=== PATIENT | male | born 1985 | race Caucasian/White ===

== ENCOUNTER 2017-08-01 10:45 | Emergency (ER) | END 2017-08-01 18:30 | disposition home or self-care (01) ==

== ENCOUNTER 2018-09-11 09:14 | Emergency (ER) | payer BC, MEDICAID ==
[~2018-09-11] VITALS: Ht 162.6 cm; Wt 103.0 kg
[~2018-09-11 09:14] MED LIST: HYDR-4011 PO; IBUP-1542 PO
[2018-09-11 09:39] VITALS: BP 134/71; PULSE 69; RESP 20; Ht 162.6 cm; Wt 103.0 kg
[2018-09-11] MEDS ORDERED: MED4DP PO (10:46)
[2018-09-11] MEDS ORDERED: NAPR-985 PO (10:46)
--- NOTE | 2018-09-11 10:51 | ERD ---
ER Documentation Chief Complaint Chief Complaint Complains of bilateral hand pain x 3 days HPI 33-year-old male presenting with pain to his left hand times 3 days. Patient states it hurts to put pressure on the MCP joint of the left index finger. He denies any injuries. He is right-hand dominant. Has not taken medications for pain. Denies any numbness or tingling and no pain with movement. Denies medical problems. NKDA. Surgical history denies. Social history denies ROS All systems reviewed and are negative except as per history of present illness. Medications Home Meds Active Scripts Naproxen* (Naprosyn*) 500 Mg Tablet, 500 MG PO BID PRN for PAIN AND/OR INFLAMMATION, #30 TAB Prov:ELLI SANCHEZ PA-C 09/11/18 Methylprednisolone* (Medrol* DOSE PACK) 4 Mg/Dose-Pack Tab.ds.pk, 4 MG PO . DIRECTED, #1 PACKET Prov:ELLI SANCHEZ PA-C 09/11/18 Hydrocodone/Acetaminophen ([place] 5-325 Tablet) 1 Each Tablet, 1 EACH PO Q6, #10 TAB Prov:KIARACAMMIEMALCOM C 08/01/17 Ibuprofen* (Motrin*) 600 Mg Tab, 600 MG PO Q6, #30 TAB Prov:MALCOM CRAIG 08/01/17 Allergies Allergies: Coded Allergies: No Known Allergy (Unverified , 08/01/17) PMhx/Soc Hx Alcohol Use: No Hx Substance Use: No Hx Tobacco Use: No FmHx Family History: No diabetes, No coronary disease, No other Physical Exam Vitals Vital Signs Date Temp Pulse Resp B/P (MAP) Pulse Ox O2 O2 Flow FiO2 Time Delivery Rate 09/11/18 98.6 69 20 134/71 99 09:39 (92) Physical Exam GENERAL: The patient is well-appearing, well-nourished, in no acute distress CHEST: Clear to auscultation bilaterally. There are no rales, wheezes or rhonchi. HEART: Regular rate and rhythm. No murmurs, clicks, rubs or gallops. EXTREMITIES: Normal flexion and extension of the DIP PIP and MCP joint of the left index finger. Compartments soft. No erythema or warmth. NEUROLOGIC: Neurovascularly intact. Sensation intact. SKIN: There is no apparent rash or petechiae. The skin is warm and dry. Results 24 hrs Current Medications Medications Dose Sig/Suha Start Time Status Last (Trade) Ordered Route PRN Stop Time Admin Dose Reason Admin Ibuprofen 800 mg ONCE ONCE 09/11/18 (Motrin) PO 11:00 09/11/18 11:01 Procedures/MDM MDM: 33-year-old male presenting with findings consistent with nerve inflammation. I have low suspicion for acute fracture or dislocation. Patient is discharged with pain medication and steroids. I have low suspicion for infectious etiology. I have considered gout however there is no erythema or swelling to have low suspicion. Patient does not require x-rays there is no recent injury. Patient is discharged stricter precautions. All questions answered at discharge Departure Diagnosis: Primary Impression: Pain of finger Condition: Stable Patient Instructions: Finger Contusion Referrals: [facility] YOU HAVE RECEIVED A MEDICAL SCREENING EXAM AND THE RESULTS INDICATE THAT YOU DO NOT HAVE A CONDITION THAT REQUIRES URGENT TREATMENT IN THE EMERGENCY DEPARTMENT. FURTHER EVALUATION AND TREATMENT OF YOUR CONDITION CAN WAIT UNTIL YOU ARE SEEN IN YOUR DOCTORS OFFICE WITHIN THE NEXT 1-2 DAYS. IT IS YOUR RESPONSIBILITY TO MAKE AN APPOINTMENT FOR FOLOW-UP CARE. IF YOU HAVE A PRIMARY DOCTOR --you should call your primary doctor and schedule an appointment IF YOU DO NOT HAVE A PRIMARY DOCTOR YOU CAN CALL OUR PHYSICIAN REFERRAL HOTLINE AT IF YOU CAN NOT AFFORD TO SEE A PHYSICIAN YOU CAN CHOSE FROM THE FOLLOWING [facility] [address] [facility]. [facility] [address] [facility] [facility] [address] [facility] [facility] [address]. [facility] [address] [facility]. [facility]. [address] Additional Instructions: FOLLOW UP WITH YOUR PRIMARY CARE PHYSICIAN TOMORROW.Return to this facility if you are not improving as expected. ELLI SANCHEZ PA-C Sep 11, 2018 10:51
[2018-09-11] MEDS ORDERED: IBUPROFEN 800 MG TAB PO ONE (11:00)
== END 2018-09-11 11:38 | disposition home or self-care (01) ==
LOC: FTE 09:14
DX: M79.645 Pain in left finger(s) (principal)
CPT/HCPCS: 99283; Z7610